=== PATIENT | female | born 2000 | race African-American/Black ===

== ENCOUNTER 2023-12-23 15:01 | Outpatient (CLI) | payer BC, OTHER, SELFPAY ==
--- NOTE | ~2023-12-23 | US_ITS ---
EXAMINATION: US pelvic complete w TV DATE: 12/23/2023 16:16 INDICATION: Abnormal uterine and vaginal bleeding TECHNIQUE: Multiple transabdominal and endovaginal sonographic images of the pelvis were obtained. COMPARISON: None. FINDINGS: The uterus measures 7.4 x 3.0 x 4.1 cm. The endometrial complex measures 4-5 mm in thickness. The ri ght ovary measures 3.4 x 3.0 x 2.8 cm. The left ovary measures 2.8 x 2.6 x 2.0 cm. There is normal va scular flow in the ovaries. There are multiple subcentimeter anechoic cysts at the periphery of both the left and right ovaries which suggests polycystic ovarian disease. There is a small amount of like ly physiologic anechoic free fluid in the pelvis. IMPRESSION: 1. Numerous subcentimeter cysts/follicles at the periphery of both the left and right ovaries which i s suggestive of polycystic ovarian disease. Reviewed, dictated and finalized at location A. IMPRESSION: 1. Numerous subcentimeter cysts/follicles at the periphery of both the left and right ovaries which is suggestive of polycystic ovarian disease.
[2023-12-23 16:15] LABS: Basophils Percent Auto 0.3 % (0.2-1.2); Eosinophils Absolute Auto 0.2 K/mm3 (0-0.3); Eosinophils Percent Auto 2.4 % (0-4.4); Hematocrit 38.6 % (37.0-47.0); Hemoglobin 12.2 g/dL (12.0-15.0); Immature Granulocyte Absolute 0.01 K/mm3 (0.00-0.031); Immature Granulocyte Percent A 0.1 % (0-0.5); Lymphocytes Absolute Auto 2.99 K/mm3 (0.9-3.2); Lymphocytes Percent Auto 44.5 % (18.3-44.2); Mean Corpuscular HGB Conc 31.6 g/dl (32-36); Mean Corpuscular Hemoglobin 26.8 pg (26-34); Mean Corpuscular Volume 84.6 fl (80-100); Mean Platelet Volume 9.6 fl (7.4-10.4); Monocytes Absolute Auto 0.5 K/mm3 (0.1-0.6); Neutrophils Absolute Auto 3.1 K/mm3 (1.3-6.7); Neutrophils Percent Auto 45.7 % (45.5-73.1); Platelet Count Result 229 k/mm3 (150-375); Red Blood Count 4.56 M/mm3 (4.2-5.4); Red Cell Distribution Width 12.7 % (11.5-14.5); White Blood Count 6.7 K/mm3 (4.5-10.0)
[2023-12-23 16:27] LABS: Alanine Aminotransferase 37 U/L (6-35); Albumin Level 4.7 g/dL (3.5-5.1); Alkaline Phosphatase 71 U/L (38-126); Anion Gap 9 mmol/L (4-12); Aspartate Amino Transferase 34 U/L (14-36); Bilirubin,Total 0.5 mg/dL (0.2-1.3); Blood Urea Nitrogen 10 mg/dL (7-17); Calcium 9.1 mg/dL (8.4-10.2); Carbon Dioxide 27 mmol/L (22-30); Chloride 102 mmol/L (98-107); Cholesterol 140 mg/dL (0-200); Estimated Glomerular Filt Rate > 60; Glucose 88 mg/dL (65-110); HDL Direct 64 mg/dL; Potassium 3.9 mmol/L (3.4-5.0); Sodium 138 mmol/L (137-145); Triglycerides 66 mg/dL (<150)
[2023-12-23 16:30] LABS: Hemoglobin A1C 5.7 % (<5.7)
[2023-12-23 16:40] LABS: LDL Cholesterol Direct 56 mg/dL
[2023-12-23 17:42] LABS: Thyroid Stimulating Hormone Reflex 0.788 uIU/mL (0.465-4.68)
[2023-12-25 02:09] LABS: Prolactin 9.6 ng/mL
== END 2023-12-23 15:02 | disposition home or self-care (01) ==
LOC: ANHIMG 15:03
PROVIDERS: PCP Emergency Medicine; Visit Provider Emergency Medicine
DX: N93.9 Abnormal uterine and vaginal bleeding, unspecified (principal); R73.03 Prediabetes
CPT/HCPCS: 36415; 76830; 76856; 80053; 80061; 83036; 84146; 84443; 85025

== ENCOUNTER 2025-03-05 12:23 | Outpatient (CLI) | payer BC, SELFPAY ==
--- NOTE | ~2025-03-05 | US_ITS ---
US breast LT limited INDICATION: Breast pain TECHNIQUE: Dedicated Limited left breast ultrasound COMPARISON: No prior studies for comparison. FINDINGS: The left breast is/are composed of normal heterogeneous echotexture without focal solid or cystic mass. IMPRESSION: 1: Normal left breast ultrasound. BI-RADS CATEGORY 1 - NEGATIVE Reviewed, dictated and finalized at location B.
== END 2025-03-05 12:24 | disposition home or self-care (01) ==
PROVIDERS: Visit Provider Physician Assistant Medical
DX: N64.4 Mastodynia (principal)
CPT/HCPCS: 76642